=== PATIENT | female | born 1945 ===

== ENCOUNTER 2017-04-24 10:15 | Emergency (ER) | payer OTHER ==
[~2017-04-24] VITALS: Ht 162.6 cm; Wt 76.2 kg
--- NOTE | 2017-04-24 10:55 | ED GI/GU/ABDOMINAL COMPLAINT ---
History of Present Illness General Chief Complaint: Abdominal Pain/Flank Pain Stated Complaint: ABD PAIN 5 DAYS Source: patient Exam Limitations: no limitations Vital Signs & Intake/Output Vital Signs & Intake/Output Vital Signs Date Time Temp Pulse Resp B/P B/P Pulse O2 O2 Flow FiO2 Mean Ox Delivery Rate 04/24 1222 97.4 74 18 120/72 100 Room Air 04/24 1021 97.9 90 18 125/82 98 Room Air Allergies Uncoded Allergies: SENSITIVE TO MEDICATIONS (06/29/12) Reconcile Medications Clonazepam 1 MG TABLET 1 TAB PO QPMP PRN RESTLESS LEGS (Reported) Levothyroxine Sodium 112 MCG TABLET 1 TAB PO DAILY AC THYROID (Reported) Liothyronine Sodium 5 MCG TABLET 1 TAB PO DAILY AC THYROID (Reported) Triage Note: 71 Y/O FEMALE C/O "VERTIGO" SINCE FRIDAY; ALSO C/O NAUSEA AND DIFFUSE ABDOMINAL PAIN. LAST BM WAS THIS AM AND "WAS WATERY". STATES SHE HAS A "ROLLING PAIN" IN ABDOMEN; HAD SIMILIAR PAIN BUT IS FEELING BETTER. STATES SHE CONTINUES TO FEEL DIZZY. DENIES URINARY SYPMTOMS Triage Nurses Notes Reviewed? yes ? n Is pt currently ? No HPI: Patient presents for evaluation of diffuse abdominal pain began about 3-4 days ago. Patient states that she may begin a suspicious meal consisting of grilled chicken. She states this because her is also sick for a day or 2 but is now better. The pain was sudden in onset and has been intermittent severe sharp and "like a rolling pain". Patient seems to indicate that the pain has been somewhat migratory. She had one loose bowel movement" today but otherwise no persistent diarrhea. There has been no associated dysuria or rashes. Patient's pain awoke her from sleep this morning and seemed to be particularly severe. Throughout the episodes of abdominal pain she has had virtually no pedal intake. She is status post hysterectomy and cholecystectomy. Past History Travel History Traveled to [place] past 21 day No Medical History Any Pertinent Medical History? see below for history Neurological: NONE EENT: NONE Cardiovascular: NONE Respiratory: NONE Gastrointestinal: pancreatitis Hepatic: NONE Renal: NONE Musculoskeletal: RESTLESS LEG SYNDROME Psychiatric: NONE Endocrine: hypothyroidism SEROLOGY TECHNICIAN/Reproductive: endometriosis Surgical History Surgical History: cholecystectomy, hysterectomy Psychosocial History What is your primary language Sami Tobacco Use: Never used Family History Hx Contributory? No Review of Systems Review of Systems Constitutional: Reports: no symptoms. EENTM: Reports: no symptoms. Respiratory: Reports: no symptoms. Cardiovascular: Reports: no symptoms. GI: Reports: see HPI. Genitourinary: Reports: no symptoms. Musculoskeletal: Reports: no symptoms. Skin: Reports: no symptoms. Neurological/Psychological: Reports: no symptoms. Hematologic/Endocrine: Reports: no symptoms. Immunologic/Allergic: Reports: no symptoms. All Other Systems: Reviewed and Negative Physical Exam Physical Exam Gastrointestinal: see below Comments: Gen.: Well-nourished, well-developed, no acute respiratory distress. Head: Normocephalic, atraumatic. Eyes: Normal inspection bilaterally Ears: Normal inspection bilaterally Nose: Normal inspection Throat/mouth : Tacky mucosa Neck: Supple, full range of motion, no goiter Heart: Regular rate and rhythm, no murmurs rubs or gallops Lungs: Clear to auscultation bilaterally with normal air entry Chest: Nontender Back: Normal range of motion Abdomen: Soft, diffuse tenderness most prominent in the left upper quadrant, right lower quadrant and left lower quadrant., nondistended, normal bowel sounds Extremities: Normal range of motion grossly, equal radial pulses, no cyanosis clubbing or edema Neurologic: Cranial nerves grossly intact, speech is clear Skin: warm and dry Psychiatric: Calm, cooperative, no apparent delusions or hallucinations Core Measures ACS in differential dx? No Severe Sepsis Present: No Septic Shock Present: No Progress Differential Diagnosis: food poisoning, viral gastroenteritis, colitis, diverticulitis, appendicitis Plan of Care: Orders Procedure Date/time Status URINALYSIS 04/24 1055 Complete LIPASE 04/24 1055 Complete COMPREHENSIVE METABOLIC PANEL 04/24 1055 Complete CBC WITHOUT DIFFERENTIAL 04/24 1055 Complete Current Medications Sig/Alysia Start time Last Medication Dose Stop Time Status Admin Hyoscyamine 0.125 MG ONCE ONE 04/24 1400 AC (Levsin) 04/24 1401 Laboratory Tests 04/24/17 1218: Urine Color YEL, Urine Clarity CLEAR, Urine pH 6.0, Ur Specific [place] 1.015, Urine Protein NEG, Urine Ketones NEG, Urine Nitrite NEG, Urine Bilirubin NEG, Urine Urobilinogen 0.2, Ur Leukocyte Esterase NEG, Ur Microscopic EXAM NOT REQUIRED, Urine Hemoglobin NEG, Urine Glucose NEG 04/24/17 1110: Anion Gap 9, Estimated GFR > 60, BUN/Creatinine Ratio 25.7 H, Glucose 91, Calcium 8.8, Total Bilirubin 0.4, AST 25, ALT 45, Alkaline Phosphatase 65, Total Protein 6.5, Albumin 3.6, Globulin 2.9, Albumin/Globulin Ratio 1.2, Lipase 65, CBC w Diff NO MAN DIFF REQ, RBC 6.07 H, MCV 64.7 L, MCH 20.5 L, RDW 17.0 H, MPV 10.9 H, Gran % 64.6, Lymphocytes % 22.9, Monocytes % 10.8 H, Eosinophils % 1.4, Basophils % 0.3, Absolute Granulocytes 4.2, Absolute Lymphocytes 1.5, Absolute Monocytes 0.7 H, Absolute Eosinophils 0.1, Absolute Basophils 0, PUBS MCHC 31.7 L Diagnostic Imaging: Discussed w/RAD: CT Scan. Radiology Impression: PATIENT: NATASHA DUBOIS PRESENT AGE: 71 PATIENT ACCOUNT NO: [id number] : 46 LOCATION: [facility] ORDERING PHYSICIAN: TOBY BOSWELL MD SERVICE DATE: 04/24/17 EXAM TYPE: CAT - CT ABD & PELVIS W IV CONTRAST EXAMINATION: CT ABDOMEN AND PELVIS WITH CONTRAST CLINICAL INFORMATION: Diffuse abdominal pain and tenderness. Presumptive diagnosis of diverticulitis, appendicitis, colitis. COMPARISON: None TECHNIQUE: Multidetector volumetric imaging was performed of the abdomen and pelvis before and after the IV administration of 95 mL of Omnipaque 300 intravenous contrast. Sagittal and coronal reformatted images were obtained on the technologist's workstation. DLP: 394 mGy-cm FINDINGS: LUNG BASES: The visualized lung bases are unremarkable. LIVER, GALLBLADDER, AND BILIARY TREE: The liver is normal in size, shape, and attenuation. There is moderate intrahepatic biliary ductal dilatation. Common bile duct measures up to 1.2 cm in diameter. Gallbladder is surgically absent. There is a hypoattenuating cystic focus in the posterior aspect of hepatic segment 2/3 on image 17/24 of series 2. This is too small to accurately characterize. No suspicious lesions are identified. PANCREAS: Unremarkable. SPLEEN: Unremarkable. ADRENAL GLANDS: Unremarkable. KIDNEYS AND URETERS: Intravenous contrast material is present throughout the bilateral renal collecting systems and ureters. No hydronephrosis. No nephrolithiasis, though sensitivity for tiny nonobstructing calculi is slightly limited by the contrast material. Kidneys normal in size, shape, and contour with normal cortical thickness. No perinephric stranding. There is a 3.2 cm water density cyst at the medial aspect of the interpolar region of the right kidney. A few small parapelvic cysts are present at the left kidney. BLADDER: Unremarkable. GASTROINTESTINAL TRACT: Stomach, small bowel, and colon are normal in caliber. Appendix is normal. No intraperitoneal free fluid or free air. No bowel wall thickening or significant surrounding inflammatory changes. ABDOMINAL WALL: No significant hernia is appreciated. LYMPH NODES: Normal. VASCULAR: Minimal calcific atherosclerosis is present in the abdominal aorta. No aneurysmal dilatation. PELVIC VISCERA: Unremarkable. OSSEOUS STRUCTURES: There is moderate degenerative disc disease at L2-L3. As seen on image 44/94 of series 2, there is a gas containing focus in the left subarticular zone of the central canal, possibly a disc extrusion. This likely produces significant mass effect upon the descending left L3 nerve root at this level. Marked facet arthropathy is present in the lower lumbar spine. IMPRESSION : 1. No acute intra-abdominal or intrapelvic abnormalities. 2. Moderate intrahepatic and extrahepatic biliary duct dilatation, likely due in large part to the prior cholecystectomy. No obstructing lesions are identified. 3. Moderate degenerative disc disease at L2-L3 with a gas containing left paracentral disc extrusion that produces significant mass effect upon the left L3 nerve root in the subarticular zone. 4. A 3.2 cm water density right renal cyst. DICTATED BY: ALISON KIM MD DATE/TIME DICTATED:04/24/171301 SENIOR SAS PROGRAMMER:DEMAR DATE/TIME TRANSCRIBED:04/24/171301 CONFIDENTIAL, DO NOT COPY WITHOUT APPROPRIATE AUTHORIZATION. <Electronically signed in Other Vendor System> SIGNED BY: ALISON KIM MD 04/24/17 6472 Initial ED EKG: none Comments: 04/24/2017 1:46:46 PM I have updated pole on her test results. She will convert to a clear liquid diet for the time being and advance as tolerated. She will also try Levsin for pain (she was initially reluctant during her emergency department stay to try this because she has sensitivities to many different medications). Departure Departure Disposition: HOME OR SELF CARE Condition: Stable Clinical Impression Primary Impression: Nonspecific abdominal pain Referrals: NORTH KIMBROUGH MD (PCP/Family) Additional Instructions: Clear liquid diet including Gatorade or Powerade as discussed. Advance her diet as tolerated. Levsin as needed for cramping abdominal pain. Maintain a good fluid intake. Consider a decongestant for your sinus congestion. Follow-up with your primary care physician if not improved in the next 48-72 hours. Return if any concerns or sudden worsening. Please note that there might be incidental findings in your evaluation that are unrelated to the current emergency department visit. Please notify your primary care doctor about this emergency department visit in order to obtain and review all of the testing performed so that these incidental findings can be monitored as needed. If you had an x-ray performed, please understand that some fractures may not be seen on the initial set of x-rays. If your symptoms persist you might need a repeat set of x-rays to check for such a fracture. If you had a laceration evaluated, please understand that foreign bodies such as glass or wood may not be visible to the naked eye or on plain x-rays. If the wound becomes red, swollen, increasingly more painful or if there is any drainage from the wound, please have it reevaluated by a physician for the possibility of a retained foreign body. Thank you for choosing the [facility] Emergency Department for your care. It was a pleasure to serve you today. Toby Boswell M.D. [facility] Departure Forms: Customer Survey General Discharge Information Prescriptions: Current Visit Scripts Hyoscyamine (Levsin) 1-2 TAB PO Q6P PRN ABDOMINAL CRAMPS #20 TAB
[2017-04-24 11:17] LABS: ABSOLUTE BASOPHIL COUNT 0 /CUMM (0.0-0.2); ABSOLUTE EOSINOPHIL COUNT 0.1 /CUMM (0.0-0.7); ABSOLUTE MONOCYTE COUNT 0.7 /CUMM (0.10-0.60); EOSINOPHIL % 1.4 % (0-5); HEMATOCRIT 39.3 % (37-47); MEAN CORPUSCULAR HGB 20.5 PG (27.0-31.0); RED BLOOD CELL CT 6.07 /CUMM (4.20-5.40)
[2017-04-24 11:19] LABS: ABSOLUTE GRANULOCYTE CT 4.2 /CUMM (1.4-6.5); ABSOLUTE LYMPH COUNT 1.5 /CUMM (1.2-3.4); BASOPHIL % 0.3 % (0.0-2.0); GRANULOCYTE % 64.6 % (42.2-75.2); MEAN CORPUSCULAR HGB CONC 31.7 G/DL (33.0-37.0); MEAN PLATELET VOLUME 10.9 FL (7.4-10.4); WHITE BLOOD CELL COUNT 6.6 /CUMM (4.8-10.8)
[2017-04-24] MEDS ORDERED: CLONAZEPAM1 M2 PO (11:55)
[2017-04-24] MEDS ORDERED: LIOTHYRONINE SO5 MC1 PO (11:55)
[2017-04-24] MEDS ORDERED: LEVOTHYROXINE112 MCG PO (11:56)
[2017-04-24 12:04] LABS: PLATELET COUNT 198 /CUMM (130-400)
[2017-04-24 12:05] LABS: MEAN CORPUSCULAR VOLUME 64.7 FL (81.0-99.0)
--- NOTE | 2017-04-24 13:17 | CT SCAN REPORT ---
EXAMINATION: CT ABDOMEN AND PELVIS WITH CONTRAST CLINICAL INFORMATION: Diffuse abdominal pain and tenderness. Presumptive diagnosis of diverticulitis, appendicitis, colitis. COMPARISON: None TECHNIQUE: Multidetector volumetric imaging was performed of the abdomen and pelvis before and after the IV administration of 95 mL of Omnipaque 300 intravenous contrast. Sagittal and coronal reformatted images were obtained on the technologist's workstation. DLP: 394 mGy-cm FINDINGS: LUNG BASES: The visualized lung bases are unremarkable. LIVER, GALLBLADDER, AND BILIARY TREE: The liver is normal in size, shape, and attenuation. There is moderate intrahepatic biliary ductal dilatation. Common bile duct measures up to 1.2 cm in diameter. Gallbladder is surgically absent. There is a hypoattenuating cystic focus in the posterior aspect of hepatic segment 2/3 on image 17/24 of series 2. This is too small to accurately characterize. No suspicious lesions are identified. PANCREAS: Unremarkable. SPLEEN: Unremarkable. ADRENAL GLANDS: Unremarkable. KIDNEYS AND URETERS: Intravenous contrast material is present throughout the bilateral renal collecting systems and ureters. No hydronephrosis. No nephrolithiasis, though sensitivity for tiny nonobstructing calculi is slightly limited by the contrast material. Kidneys normal in size, shape, and contour with normal cortical thickness. No perinephric stranding. There is a 3.2 cm water density cyst at the medial aspect of the interpolar region of the right kidney. A few small parapelvic cysts are present at the left kidney. BLADDER: Unremarkable. GASTROINTESTINAL TRACT: Stomach, small bowel, and colon are normal in caliber. Appendix is normal. No intraperitoneal free fluid or free air. No bowel wall thickening or significant surrounding inflammatory changes. ABDOMINAL WALL: No significant hernia is appreciated. LYMPH NODES: Normal. VASCULAR: Minimal calcific atherosclerosis is present in the abdominal aorta. No aneurysmal dilatation. PELVIC VISCERA: Unremarkable. OSSEOUS STRUCTURES: There is moderate degenerative disc disease at L2-L3. As seen on image 44/94 of series 2, there is a gas containing focus in the left subarticular zone of the central canal, possibly a disc extrusion. This likely produces significant mass effect upon the descending left L3 nerve root at this level. Marked facet arthropathy is present in the lower lumbar spine. IMPRESSION: 1. No acute intra-abdominal or intrapelvic abnormalities. 2. Moderate intrahepatic and extrahepatic biliary duct dilatation, likely due in large part to the prior cholecystectomy. No obstructing lesions are identified. 3. Moderate degenerative disc disease at L2-L3 with a gas containing left paracentral disc extrusion that produces significant mass effect upon the left L3 nerve root in the subarticular zone. 4. A 3.2 cm water density right renal cyst.
[2017-04-24] MEDS ORDERED: LEVSIN0.125 M1 PO (13:50)
[2017-04-24 14:10] VITALS: BP 120/80
== END 2017-04-24 14:15 ==
LOC: ERH 10:15
PROVIDERS: Emergency Medicine
DX: R10.84 Generalized abdominal pain (principal)
CPT/HCPCS: 74177; 81003; 96360